=== PATIENT | male | born 2000 | race Caucasian/White ===

== ENCOUNTER 2024-04-17 12:12 | Emergency (ER) | payer OTHER, SELFPAY ==
[2024-04-17 12:18] VITALS: BP 125/82
[2024-04-17 12:32] LABS: % Basophils 0.6 % (0-2); % Eosinophils 6.7 % (0-6); % Immature Granulocytes 0.4 % (0-0.5); % Lymphocytes 34.6 % (20.5-51.1); % Monocytes 9.2 % (1.7-9.3); % Neutrophils 48.5 % (42.2-75.2); Absolute Eosinophils 0.3 10^3/uL (0-0.7); Absolute Lymphocytes 1.7 10^3/uL (1.2-3.4); Absolute Monocytes 0.4 10^3/uL (0.1-0.6); Absolute Neutrophils 2.3 10^3/uL (1.4-6.5); Hematocrit 44.8 % (39.0-52.0); Mean Corp Hgb Conc. 35.7 g/dL (33.0-37.0); Mean Corpuscular Hgb 29.5 pg (27.0-31.0); Mean Corpuscular Volume 82.7 fL (80.0-94.0); Mean Platelet Volume 9.1 fL (7.4-10.4); Nucleated Red Blood Cells % 0 % (-); Platelet Count 297 10^3/uL (130-400); Red Blood Cell Count 5.42 10^6/uL (4.70-6.10); Red Cell Dist. Width 11.9 % (11.5-14.5); White Blood Cell Count 4.8 10^3/uL (4.8-10.8)
[2024-04-17 12:47] LABS: ALT (SGPT) 25 U/L (0-50); AST (SGOT) 34 U/L (17-59); Albumin 5.1 g/dl (3.5-5.0); Alkaline Phosphatase 51 U/L (38-126); Blood Urea Nitrogen 13 mg/dl (9-20); Calcium 9.9 mg/dl (8.4-10.2); Carbon Dioxide 25 mmol/L (22-30); Chloride 101 mmol/L (98-107); Glucose 99 mg/dl (70-99); Potassium 4.3 mmol/L (3.5-5.1); Sodium 143 mmol/L (135-145); Total Bilirubin 1.2 mg/dl (0.2-1.3); Total Protein 7.9 g/dl (6.3-8.2); eGFR > 60.00
[2024-04-17 12:51] VITALS: BP 134/80
[2024-04-17 12:56] LABS: Troponin I < 0.012 ng/ml
[2024-04-17 13:00] VITALS: BP 117/83
[2024-04-17 14:00] VITALS: BP 125/93
--- NOTE | 2024-04-17 14:04 | ED.GENMED ---
History of Present Illness
General
Chief Complaint: Chest Pain
Time Seen by Provider: 04/17/24 13:41
History of Present Illness
History of Present Illness:
23-year-old male without significant past medical history presenting to the emergency department for episode of chest pain. Patient reports prior to arrival he was having a slushy type beverage. He got a brain freeze, and then got tightness in his
chest, lasted about 15 seconds. He went to urgent care, had an EKG and told that it was slightly abnormal, and was advised to come to the emergency department. Patient is adopted, denies any known cardiac family history. Denies any personal
family history. Denies any difficulty breathing, recent fever or cough, abdominal pain or GI symptoms, or additional acute medical complaints.
Phy Exam
Physical Exam
Physical Exam:
General: Well-appearing, no clinical signs of dehydration, nontoxic and in no acute distress
HEENT: protecting airway
Neck: appears supple
CV: Normal heart rate, regular rhythm, no evidence of cyanosis
Resp: No accessory muscle use, no increased work of breathing, lungs clear to auscultation bilaterally
Abd: No distention
Extremities: No deformities, no swelling
Neuro: alert, no focal neurologic deficit
: deferred
Rectal: deferred
Psych: Normal affect
Skin: Intact
Scores
Heart Score for Chest Pain Patients
STEMI patient?: No
History: Slightly or Non-Suspicious
ECG: Normal
Age: </= 45 years
Risk Factors: No Risk Factors
Troponin: </= Normal Limit
Heart Score for Chest Pain Patients: 0
Heart Score Risk: 2.5% MACE over next 6 weeks
Course
Orders/Labs/Results
Orders:
Orders
04/17/24 12:12
ECG [Electrocardiogram (*1)] Urgent
Reason for Study: Chest Pain
EKG- Treatment ONCE
09/25/24 12:26
Complete Blood Count/With Diff Urgent
Comprehensive Metabolic Panel Urgent
Troponin I Urgent
Abnormal Lab Results
04/17/24
12:26
Eosinophils % 6.7 H %
(0-6)
Albumin 5.1 H g/dl
(3.5-5.0)
04/17/24 12:26
04/17/24 12:26
Vital Signs
Initial and Last Documented VS:
Initial Vital Signs
Temp Pulse Resp BP Pulse Ox
98.4 F 80 18 125/82 96
04/17/24 12:18 04/17/24 12:18 04/17/24 12:18 04/17/24 12:18 04/17/24 12:18
Last Documented Vital Signs
Temp Pulse Resp BP Pulse Ox
98.4 F 77 25 125/93 96
04/17/24 12:18 04/17/24 14:30 04/17/24 14:30 04/17/24 14:00 04/17/24 14:00
MDM/Problems Addressed
MDM/Problems Addressed:
23-year-old male without significant past medical history presenting for episode of chest tightness after drinking a slushy prior to arrival. Vital signs are normal.
On exam patient well-appearing, no acute distress or discomfort. Unremarkable cardiac and pulmonary exam. EKG obtained on arrival, nonischemic. Patient without any significant ACS factors. Low suspicion for ACS. Patient had screening laboratory
analysis but is also, the troponin. Patient low risk by heart score. No PE risk factors. Suspect esophageal spasm when drinking the slushy versus gastric pathology. Patient currently asymptomatic. Feel stable for discharge with outpatient
follow-up. Return precautions discussed and patient verbalized understanding
*EKG
Interpreted by ED Provider?: Yes
EKG Intrepretation Date: 04/17/24
EKG Intrepretation Time: 14:07
Interpretation: normal
Comparison EKG: no comparison EKG present
Heart Rate: 74
Rate: normal
Rhythm: sinus
[place]: normal axis
Interval: normal interval
QRS Pattern: normal QRS
Ischemia: no ischemia
*Critical Care Note
Total Time (30-74mins, 75-104mins- exclusive of procedures): Not Applicable
ED Attending Note
-
Portions of this chart may have been created with voice recognition software.� Occasional wrong word or��sound alike� substitutions may have occurred due to the inherent limitations of voice recognition software.
Discharge Plan
Departure
Patient Disposition: Home (Routine Discharge)
Date of Disposition: 04/17/24
Time of Disposition: 14:10
Patient with high blood pressure during this ER visit?: No
Condition: Good
Discharge Problem:
Chest tightness
Instructions: Chest Pain That Is Not Caused by the Heart (DC)
Prescriptions:
No Action
methylphenidate HCl 5 MG tablet
5/D
Patient Comments:
on school days
Vitamin W/Flouride
DAILY
Referrals:
Moses Santiago MD [Family Provider] -
Activity Restrictions/Additional Instructions:
You were seen in the emergency department for an episode of chest tightness
You were found to have normal laboratory analysis and EKG
Please follow-up closely with your primary care physician.
Return to the emergency department for any worsening of your symptoms, or any development of chest pain, difficulty breathing, abdominal pain with persistent vomiting and inability to tolerate food or liquid by mouth (concern for dehydration),
weakness, headache or confusion, fever greater than 100.4, or any additional symptoms that are concerning to you.
Thank you for choosing [facility].
Interventions
Interventions:
*Risk Screen - Suicide Last Done: 04/17/24 12:18
*General Assessment Last Done: 04/17/24 12:18
*Neglect/Abuse Screening Last Done: 04/17/24 12:18
ED- Fall Risk Assessment Last Done: 04/17/24 13:50
*ED COVID-19 Vaccine History Last Done: 04/17/24 13:50
*Nursing Disposition Last Done: 04/17/24 14:30
ED- Cardiac Assessment Last Done: 04/17/24 13:50
Discharge Date and Time
Discharge Date/Time: 04/17/24 14:30
Print Language: [id number]
== END 2024-04-17 14:30 | disposition home or self-care (01) ==
LOC: EMR 12:12
PROVIDERS: EMERGENCY PHYSICIAN Student in an Organized Health Care Education/Training Program; FAMILY PHYSICIAN Internal Medicine
DX: R07.89 Other chest pain (principal); R94.31 Abnormal electrocardiogram [ECG] [EKG]
CPT/HCPCS: 99283; 80053; 84484; 85025; 93005